=== PATIENT | female | born 1930 | race Caucasian/White ===

== ENCOUNTER 2018-06-08 11:31 | Emergency (ER) | payer OTHER, MEDICARE ==
[~2018-06-08] VITALS: Ht 162.6 cm; Wt 63.5 kg
[2018-06-08 11:53] LABS: ABSOLUTE NEUTROPHILS 5.1 thou/uL (1.4-8.2); BASOPHILS 0.8 % (0.0-2.0); HEMATOCRIT 39.2 % (37.0-47.0); HEMOGLOBIN 13.4 gm/dL (12.0-15.0); LYMPHOCYTES 14.1 % (24.0-44.0); MCH 33.8 pg (26.0-34.0); MCHC 34.3 g/dL (28.0-37.0); MCV 98.7 fL (80.0-100.0); MONOCYTES 9.1 % (1.0-8.0); PLATELET COUNT 259 thou/uL (150-400); RBC 3.97 mil/uL (4.20-5.00); RDW 12.8 % (10.5-14.5); WBC 7.3 thou/uL (4.0-11.0)
[2018-06-08 11:54] LABS: URINE BILIRUBIN NEGATIVE (Negative); URINE BLOOD TRACE (Negative); URINE CLARITY CLEAR; URINE COLOR YELLOW; URINE GLUCOSE-RANDOM* NEGATIVE (Negative); URINE KETONES NEGATIVE (Negative); URINE LEUKOCYTES-REFLEX NEGATIVE (Negative); URINE NITRITE-REFLEX NEGATIVE (Negative); URINE PROTEIN (DIPSTICK) NEGATIVE (Negative); URINE SPECIFIC GRAVITY 1.015 (1.005-1.035); URINE UROBILINOGEN 0.2 E.U./dl (0.2-1.0)
[2018-06-08 11:56] LABS: ANION GAP 6 mmol/L (7-16); BUN 29 mg/dL (7-18); CALCIUM 9.9 mg/dL (8.5-10.1); CHLORIDE 105 mmol/L (98-107); CO2 27 mmol/L (21-32); CREATININE 1.2 mg/dL (0.6-1.0); GLUCOSE 89 mg/dL (74-106); POTASSIUM 4.9 mmol/L (3.5-5.1); SODIUM 138 mmol/L (136-145)
[2018-06-08 12:04] LABS: ALBUMIN 3.7 g/dL (3.4-5.0); SGOT 20 U/L (15-37); SGPT 17 U/L (30-65); TOTAL BILIRUBIN 0.4 mg/dL (<0.1-1.0); TOTAL PROTEIN 7.8 g/dL (6.4-8.2); TROPONIN-I <0.06 ng/mL (<0.06)
[2018-06-08] MEDS ORDERED: SYNTHROID75 MCG PO (12:10)
[2018-06-08] MEDS ORDERED: TRIAMCINOLONE A80 G2 TOP (12:11)
[2018-06-08] MEDS ORDERED: EFFEXOR XR75 MG PO (12:11)
[2018-06-08] MEDS ORDERED: LIPITOR10 MG PO (12:11)
[2018-06-08] MEDS ORDERED: PLAVIX 75 MG TA75 M1 PO (12:11)
[2018-06-08] MEDS ORDERED: LOSARTAN POTASS50 MG PO (12:12)
[2018-06-08] MEDS ORDERED: TYLENOL325 MG PO (12:16)
[2018-06-08] MEDS ORDERED: LO-DOSE ASPIRIN81 M1 PO (12:18)
[2018-06-08] MEDS ORDERED: MIRALAX17 GM PO (12:19)
[2018-06-08] MEDS ORDERED: DULCOLAX5 MG PO (12:19)
[2018-06-08] MEDS ORDERED: CENTRUM SILVER1 EAC4 PO (12:20)
[2018-06-08 15:36] VITALS: BP 122/74
--- NOTE | 2018-06-09 09:17 | EKG ---
[place] [address] [facility] [place] [address] ELECTROCARDIOGRAM REPORT Name: YANIRA DENNY Room #: DEP [facility]ITAL[facility]ario#: [id number] ������������������ Admission: 06/08/18 ������������������ Attend Phys: Discharge: 06/08/18 ������������������ Date of : 32 Report #: [id number] ����������������������������������������������������������������� [id number] THIS REPORT FOR: //name// [facility] ED Test Date: 2018-06-08 Test Time: 11:46:55 Pat Name: YANIRA DENNY Department: Room: Gender: F [employer]: [place] : 1930 Requested By: Patricia Chino Order Number: [id number] MD: Dinesh Madrigal Measurements Intervals [place] Rate: 68 P: 68 SD: 207 QRS: -22 QRSD: 87 T: 45 QT: 413 QTc: 440 Interpretive Statements Sinus rhythm Abnormal R-wave progression, early transition Minimal diffuse ST segment elevation, similar to 2000 Compared to ECG 02/12/2001 10:04:33 No significant change was found Electronically Signed On 06-09-2018 9:17:26 CDT by Dinesh Madrigal [email or web address] ��������������������������������������������� <ELECTRONICALLY SIGNED> ���������������������������������������� By: Dinesh Madrigal MD, [facility] ��������������������������������������������� 06/09/18 0917 [id number] Dinesh Madrigal MD, [facility] /EPI
== END 2018-06-08 15:20 ==
LOC: ER 11:31
PROVIDERS: Physician Assistant
DX: R53.1 Weakness (principal); F03.90 Unspecified dementia, unspecified severity, without behavioral disturbance, psychotic disturbance, mood disturbance, and anxiety